=== PATIENT | female | born 1990 ===

== ENCOUNTER 2018-05-29 07:16 | Inpatient (IN) | payer MEDICAID, SELFPAY ==
[2018-05-29 07:41] VITALS: BMI 40.4
[2018-05-29] MEDS ORDERED: Lactated Ringer's 1,000 ML IV ONE ×2 (08:10)
[2018-05-29] MEDS ORDERED: Lactated Ringer's 1,000 ML IV SCH (08:15)
[2018-05-29] MEDS ORDERED: ceFAZolin 2 GM in Sodium Chloride 0.9% 100 ML IVPB ONE (08:30)
[2018-05-29] MEDS ORDERED: Oxytocin 30 UNIT 30 UNITS/500 ML BAG IV ONE ×2 (08:51→09:38)
[2018-05-29] MEDS ORDERED: OXYTOCIN/0.9 % NS 20 UNIT/1,000 ML BAG IV ONE (08:51)
[2018-05-29 09:15] LABS: BASO % 0.5 % (0.0-2.0); EOS # 0.1 K/uL (0.0-0.7); HEMOGLOBIN 11.1 g/dL (12.0-16.0); LYMPH % 31.1 % (20.0-40.0); MEAN CELL VOLUME 78.6 fl (81.0-99.0); MEAN CORPUSCULAR HGB CONC 33.1 g/dL (33.0-37.0); MEAN PLATELET VOLUME 10.1 fl (7.2-11.7); MONO # 0.5 K/uL (0.0-0.8); MONO % 7.6 % (0.0-10.0); NEUT # 3.9 K/uL (1.8-7.0); NEUT % 59.8 % (50.0-75.0); NRBC % 0.2 % (0.0-0.0); RBC 4.27 Mil/uL (3.80-5.20); RED CELL DISTRIBUTION WIDTH 23.4 % (11.5-14.5); WHITE BLOOD COUNT 6.5 K/uL (4.8-10.8)
[2018-05-29] MEDS ORDERED: OXYTOCIN/0.9 % NS 20 UNIT/1,000 ML BAG IV SCH ×2 (09:45→15:40)
--- NOTE | 2018-05-29 09:55 | OBADHP ---
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 Patient denies any acute complains since her last PMD visit. Denies any LOF/BV/CTX, + FM Denies dizziness, headache, palpitations, chest pain, SOB, urinary symptoms or weakness PMD: Dr. Bender PNC: [facility], no significant complications so far with this preganancy PMH: Anemia, Obesity PSH: Allg: Denies Meds: PNV, Iron FH: Denies and genetic and bleeding disorders in family SH: Denies alcohol, smoking or illicit drug use ROS: As HPI VS: Reviewed PE: unremarkable cardio, pulmonary and neuroexam Abdominal exam: Gravid uterus A/P: 27 y/o, , GA: 39.4 comes to the [facility] for repeat - Admit to L_D - Initiate protocol - follow up labs - serial examinations --- Cristin Morales, PGY-II Patient seen and examined by me. Agree with above resident note. --Dr. Bender Pelvic Type - PN: Adequate Extremities - PN: Normal Abdomen - PN: Normal Back - PN: Normal Breast - PN: Normal Lungs - PN: Normal Heart - PN: Normal Thyroid - PN: Normal Neurologic - PN: Normal HEENT - PN: Normal General - PN: Normal FHR - Baseline A Provider: 140 Vital Signs Provider: Reviewed IP Chief Complaint: Scheduled Section NICHD Variability Prov Fetus A: Moderate 6-25bpm NICHD Accel Fetus A IP Provider: [id number] FHR Category Provider Fetus A: Category I NICHD Decel Fetus A IP Provider: None Genitourinary Exam: Normal DTRs - PN: Normal EGA AdmitDate IP: 39.4 IP Adm Impression: Term, intrauterine IP Admit Plan: Admit to unit; Initiate Section protocol; Observation/Evaluation Datetime: 05/29/2018 08:22 Comments, ACOG Physical Exam: GA 38.4 Negative gc/cl, GBS neg negative HIV and RPR Rubella immune Hep B negative PPD+ with negative CXR
[2018-05-29] MEDS ORDERED: ePHEDrine 50 mg/ml Inj ONE (10:16)
[2018-05-29] MEDS ORDERED: Morphine 1 mg/ml preservative-free Inj(Duramorph) ONE (10:16)
[2018-05-29] MEDS ORDERED: Cellulose Hemostat 2X3 Sheet ONE (11:09)
[2018-05-29] MEDS ORDERED: Morphine 1 mg/ml preservative-free Inj(Duramorph) IT ONE ×2 (11:22→15:40)
[2018-05-29] MEDS ORDERED: Oxycodone/Acetaminophen 5/325 mg Tab PO PRN ×4 (11:46→15:40)
--- NOTE | 2018-05-29 11:58 | OBDS ---
DELIVERY PERSONNEL Delivery Doctor: Michela Bender MD Scrub Nurse: Alexandra Alves Java Developer Consultant: Brandy Bird RN (Annotations: Data stored by [facility] on behalf of user) Anesthesiologist: Liam Palomino MD Resident: Laura Morales MD MATERNAL INFORMATION Delivery Anesthesia: Spinal Medications in Delivery: pitocin Estimated Blood Loss (ml): 800 Placenta Cultured: Yes Maternal Complications: None RN Comments: Atraumatic Repeat at 10:53 of a viable babyboy with Lusty Cry. reciev ed by Dr. August assigned 9/9 's Infant and patient tolerated delivery well. Skin to skin initiat ed shortly after delivery. Provider Comments: Repeat cesearean section, no complications See Operative report LABOR SUMMARY EDC: 06/01/2018 00:00 No. Babies in Womb: 1 Attempted: No Labor Anesthesia: Spinal LABOR INFORMATION Reason for Induction: Not Applicable Oxytocin: N/A Group B Beta Strep: Negative Antibiotics # of Doses: 1 Antibiotics Time of Last Dose: 10:18 Steroids Given: None Reason Steroids Not Administered: Not Applicable Other Reason Not Administered: Not required MEMBRANES Membranes Rupture Method: Artificial Rupture of Membranes: 05/29/2018 10:52 Length of Rupture (hrs): 0.02 Amniotic Fluid Color: Clear Amniotic Fluid Amount: Moderate Amniotic Fluid Odor: Normal STAGES OF LABOR Stage 3 hrs: 0 Stage 3 min: 1 CSECTION DELIVERY Primary Indication: Repeat Elective CSection Urgency: Elective CSection Incidence: Repeat CSection Incision: Lower Uterine Transverse BABY A INFORMATION Infant Delivery Date/Time: 05/29/2018 10:53 Method of Delivery: Born in Route : No : N/A Forceps: N/A Vacuum Extraction: N/A Shoulder Dystocia : No SHOULDER DYSTOCIA BABY A Delivery Date/Time: 05/29/2018 10:53 PRESENTATION/POSITION BABY A Presentation: Cephalic Cephalic Presentation: Vertex Breech Presentation: N/A PLACENTA INFORMATION BABY A Placenta Delivery Time : 05/29/2018 10:54 Placenta Method of Delivery: Manual Removal Placenta Status: Delivered SCORES BABY A Heart Rate 1 min: >100 bpm Resp Effort 1 min: Good Cry Reflex Irritability 1 min: Cough or Sneeze or Pulls Away Muscle Tone 1 min: Active Motion Color 1 min: Body Paxton, Extremities Blue Resuscitation Effort 1 min: N/A SCORE 1 MIN: 9 Heart Rate 5 min: >100 bpm Resp Effort 5 min: Good Cry Reflex Irritability 5 min: Cough or Sneeze or Pulls Away Muscle Tone 5 min: Active Motion Color 5 min: Body Paxton, Extremities Blue Resuscitation Effort 5 min: N/A SCORE 5 MIN: 9 INFANT INFORMATION BABY A Gestational Age at Delivery: 39.0 Gestational Status: Term Outcome : Liveborn Condition : Stable Sex: Male IDENTIFICATION/MEDS BABY A ID Band Number: [id number] ID Band Location: Right Leg; Right Arm WEIGHT/LENGTH BABY A Birthweight (gms): 4730 Weight (lb): 10 Infant Weight (oz): 7 CORD INFORMATION BABY A No. Cord Vessels: 3 Nuchal Cord : N/A Cord Blood Taken: No Infant Suction: Mouth; Nose ASSESSMENT BABY A Complications: None Physical Findings at Delivery: Within Normal Limits Infant Respirations: Appears Normal Care By: Dr August Transferred To: Remains with Mother
[2018-05-29] MEDS: Lactated Ringer's 1,000 ML IV SCH (19:42)
[2018-05-30] MEDS: Lactated Ringer's 1,000 ML IV SCH (03:13)
[2018-05-30 06:28] LABS: HEMOGLOBIN 8.6 g/dL (12.0-16.0); MEAN CORPUSCULAR HEMOGLOBIN 26.7 pg (27.0-31.0); MEAN CORPUSCULAR HGB CONC 33.3 g/dL (33.0-37.0); RBC 3.22 Mil/uL (3.80-5.20); RED CELL DISTRIBUTION WIDTH 23.6 % (11.5-14.5); WHITE BLOOD COUNT 8.2 K/uL (4.8-10.8)
[2018-05-30] MEDS ORDERED: Multivitamin With Minerals Tab PO SCH (09:00)
[2018-05-30] MEDS: Multivitamin With Minerals Tab PO SCH (09:32)
--- NOTE | 2018-05-30 10:31 | OBPPN ---
Datetime: 05/30/2018 06:22 PP Pain Prov: Within normal limits PP Nausea Prov: Present PP Flatus Prov: No PP BM Prov: No PP Breasts Prov: Not Done PP Heart Prov: Normal PP Lungs Prov: Normal PP Abdomen/Uterus Prov: Normal PP Lochia Prov: Normal PP Vulva/Perineum Prov: Not Done PP CVA Tenderness Prov: Normal PP Extremities Prov: Normal PP C/S Incision Prov: Normal PP Progress Prov: Not Applicable PP Impression Prov: Normal progression; difficulties PP Plan Prov: Continue present management; consult PP Progress Note Prov: 27 y/o, now , S/P repeat C section at 39.4 wks on POD #1. Patient seen and examined at bedside in AM. No acute events ovenright. Patient reports lower abdom inal incision site pain which is controlled with pain medications. Had episode of nausea and vomiitng yesterday which is improving after taking reglan. No episode of vomitign today so far. Not passing f latus or BM yet. Improing diet tolerance. Denies any fever, chills, dysuria, CP, SOB. VSS, Tmax 99.6 General: No actue distress Chest: RRR, S1 S2 present, no murmurs Lungs: CTZ B/L, No rales, wheeze, rhonchi Abdomen: Dressign C/D/I, Mild incision site tenderness, No guarding or rigidity Ext: no pedal edema A/P: 27 y/o, now , S/P repeat C section at 39.4 wks on POD #1 with normal progressi on - monitor Vitals - Encourage breast feeding - Slowly increase ambulation - Diet advance as tolerated - Reglan for nausea/vomiting PRN - Ibuprofen for mild pain and percocet for moderate pain - Anticipated D/C 06/01/18 Ruben Morales, PGY1 Voyce# [id number] Patient seen and evaluated by me this am. Agree with above resident note. Patient with Hb 8.6 this am. Asymptomatic. Reports normal lochia. Will repeat H/H in the afternoon. Patient may ambulate with assistance. Continue pain meds as needed. --Dr. Bender Vital Signs Provider PP: Reviewed; Within Normal Limits
[2018-05-30 14:09] LABS: BASO % 0.3 % (0.0-2.0); EOS % 0.1 % (0.0-4.0); LYMPH # 1.3 K/uL (1.0-4.3); LYMPH % 15.2 % (20.0-40.0); MEAN CELL VOLUME 79.2 fl (81.0-99.0); MEAN CORPUSCULAR HEMOGLOBIN 26.5 pg (27.0-31.0); MEAN CORPUSCULAR HGB CONC 33.5 g/dL (33.0-37.0); MEAN PLATELET VOLUME 8.8 fl (7.2-11.7); MONO # 0.5 K/uL (0.0-0.8); MONO % 6.2 % (0.0-10.0); NEUT # 6.5 K/uL (1.8-7.0); NEUT % 78.2 % (50.0-75.0); NRBC % 0.1 % (0.0-0.0); RBC 3.39 Mil/uL (3.80-5.20); RED CELL DISTRIBUTION WIDTH 24.3 % (11.5-14.5); WHITE BLOOD COUNT 8.3 K/uL (4.8-10.8)
[2018-05-31] MEDS: Multivitamin With Minerals Tab PO SCH (08:46)
--- NOTE | 2018-05-31 14:44 | OBPPN ---
Datetime: 05/31/2018 05:57 PP Pain Prov: Within normal limits PP Nausea Prov: Denies PP Flatus Prov: Yes PP BM Prov: Yes PP Breasts Prov: Not Done PP Heart Prov: Normal PP Lungs Prov: Normal PP Abdomen/Uterus Prov: Normal PP Lochia Prov: Normal PP Vulva/Perineum Prov: Not Done PP CVA Tenderness Prov: Normal PP Extremities Prov: Normal PP C/S Incision Prov: Normal PP Progress Prov: Abnormal PP Impression Prov: Normal progression; difficulties PP Plan Prov: Continue present management; consult PP Progress Note Prov: 27 y/o, , s/p repeat C section at 39.4 wks on POD #2. Patient seen and examined at bedside in AM. Pt reports resolution of nausea and vomtting as well a s improvement in abdominal pain. Tolerating diet well PO. Reports passing flatus and had BM. Ambulati ng in room w/o difficulties. Voiding urine well. Denies any fever, chills, dysuria, CP, SOB. Dressing and Desai D/C yesterday. VSS, afebrile General: No actue distress,well Chest: RRR, S1 S2 present Lungs: CTZ B/L, No rales, wheeze, rhonchi Abdomen: Incision site intact. Mild incision site tenderness, No guarding or rigidity Ext: no pedal edema, or calf tenderness A/P: 27 y/o, now , S/P repeat C section at 39.4 wks on POD #2 with normal progressi on - Encourage breast feeding - Continue w/ambulation - Regular diet as tolerated. - Ibuprofen for mild pain and percocet for moderate pain - Anticipated D/C tomorrow 06/01/18 Ruben Morales, PGY1 Mesha# [id number] Attending addendum: I saw and examined the patient at bedside myself this morning. I reviewed the resident note above and agree with findings and management. Anticipate DC home tomorrow. Danni Jerez MD Vital Signs Provider PP: Reviewed; Within Normal Limits Datetime: 05/30/2018 16:49 IP PP Procedures: None
--- NOTE | 2018-05-31 20:58 | OP ---
PROCEDURE DATE: 05/29/2018 PREOPERATIVE DIAGNOSIS: Term with previous section, declined vaginal after section. POSTOPERATIVE DIAGNOSIS: Term with previous section, declined vaginal after section, delivered. PROCEDURE: Repeat low-transverse section. SURGEON: Orlando Blankenship MD. TECHNICAL ADMINISTRATIVE ASSISTANT: Dr. Indira Gomez, OB fellow. ESTIMATED BLOOD LOSS: 800 mL. URINE OUTPUT: 350 mL, clear at the end of procedure. INTRAVENOUS FLUIDS: 1200 mL of lactated Ringer's. COMPLICATIONS: None. CLOSURE: Subcuticular. PATHOLOGY: Placenta. FINDINGS: A live male with Apgars of 9 and 9, weight 10 pounds 6.8 ounces, delivered in vertex presentation, amniotic fluid clear, nuchal x1 easily reduced, grossly normal tubes, ovaries and uterus. DESCRIPTION OF PROCEDURE: The patient was taken to the operating room and given spinal anesthesia without difficulty. She was prepped and draped in the normal sterile fashion in the dorsal supine position with a leftward tilt. A Pfannenstiel skin incision was then made with a scalpel and carried through the underlying fascia with the Bovie. The fascia was incised in the midline and the incision was extended laterally using the Bovie. The inferior aspect of the fascial incision was then grasped with Jorge A clamps, elevated, and the underlying rectus muscles were dissected off sharply with the Bovie, then bluntly. Attention was then turned to the superior aspect of the fascial incision, which in a similar fashion was dissected off with the Bovie and then bluntly. The rectus muscles were then meticulously in the midline using the scalpel. The peritoneum was identified, tented up, and entered with Metzenbaum scissors, and this incision was extended laterally, superiorly and inferiorly paying close attention to the bladder. The bladder blade was inserted. The vesicouterine peritoneum was identified, tented up, and entered with Metzenbaum scissors. This incision was extended laterally and a bladder flap was created digitally. The bladder blade was reinserted and the lower uterine segment was incised in a transverse fashion with the scalpel. This incision was extended cephalocaudally bluntly and the was then delivered atraumatically after reduction of a loose nuchal cord x1. Clear amniotic fluid was noted. The nose and mouth were suctioned in the abdomen. The cord was doubly clamped and cut. The was handed off to the waiting director of category management. Cord blood was then taken. The placenta was extracted manually and intact. The uterus was exteriorized and cleared of all clots and debris. The uterine incision was then closed with 1 Vicryl in a running locked fashion and two further evmioc-cb-hlage sutures were then placed for hemostasis. The Bovie was used also to provide good hemostasis at the site of the incision repair and Surgicel was placed over the incision. Copious irrigation was performed. The uterus was returned to the abdomen. The gutters were cleared of all clots. Inspection of the uterine incision again revealed good hemostasis. The peritoneum and muscle layer was then closed with 2-0 Vicryl in a running fashion. The fascia was reapproximated with 0 Vicryl in a running fashion bilaterally to the midline. The Bovie was used to ensure good hemostasis in the subcutaneous fat, and this layer was also closed with four interrupted stitches using a 3-0 plain suture. The skin was closed with 3-0 Monocryl on the Des needle for subcuticular stitch and this incision was covered with Steri-Strips and sterile dressing. The patient tolerated the procedure well. Sponge, lap, and needle counts were correct x4. Ancef 2 gm was given preoperatively. The patient was taken to the recovery room in stable condition. There was no injury to the bladder, bowel, ureter or baby. Orlando Blankenship MD
[2018-06-01] MEDS: Multivitamin With Minerals Tab PO SCH (10:03)
--- NOTE | 2018-06-01 12:39 | OBDCSUM ---
Datetime: 06/01/2018 06:21 Discharged to, Provider: Home Follow up at, Provider: Dr. Andrews Disch Instr Activity: Normal activity; May be up to bathroom; May be up for meals; May Shower Disch Instr Diet: Regular Discharge Instructions, Provider: Routine instructions given Discharge Diagnosis, Provider: Term Delivered Follow up in weeks, Provider: 2 wks, 4-6 wks Disch Referrals: None Contraception discussed, Prov: Yes Disch Activity Restrictions: No sexual activity; Nothing in vagina - Hewitt, tampons, douche Discharge Comment, Provider: EGA: 39.4 wks Diagnosis: Repeat 27 y/o , s/p on 05/29/18 @ 10:53. Pt delivered baby boy, Wt: 4730gm, 9/9 Summary: Patient is POD3 with normal progression. No complications during post- period. Loch ia less than menses. Pt was able to pass gas and had BM, tolerating regular diet, Fundus firm below u mbilicus, able to ambulate w/o any difficulties, voiding well, denies fever, chills, FRAUSTO, SOB, N/V, ca lf pain. CBC post-: 9.0/26.9 Discharge Instructions: Continue with PNV 1 tab PO daily Ibuprofen 600mg 1 tab PO Q6h prn for mild-mod pain Percocet5/325 mg tab Q4hr PRN for moderate-severe pain FeoSol take 1 tab BID for anemia Pt planning to use implant (Nexplanon) for contraception. Instructions given to patient: If excessive bleeding, return of pain or increasing pain and/or fev er without relief from medication, go to ED PT was urged if feeling sad, mood swing, depression, neglect of baby, suicidal thoughts, homicidal thought should go to ED or call 911 for help Pt should go to her Primary care doctor if she has difficulty with F/U in 2 weeks for wound check and post- visit in 4 to 6 weeks with [facility] Case discussed with attending Ruben Morales, PGY1 Attending addendum: I saw and examined the patient myself at bedside this morning. I reviewed the resident note above and agree with findings and management. Patient to have wound check and newoborn exam on Monday 06/[address] Morales. Danni Jerez MD Contraception after Delivery: Control Pill/Patch
--- NOTE | 2018-06-01 12:40 | OBPPN ---
Datetime: 06/01/2018 06:28 PP Pain Prov: Within normal limits PP Nausea Prov: Denies PP Flatus Prov: Yes PP BM Prov: Yes PP Breasts Prov: Normal PP Heart Prov: Normal PP Lungs Prov: Normal PP Abdomen/Uterus Prov: Normal PP Lochia Prov: Normal PP Vulva/Perineum Prov: Normal PP CVA Tenderness Prov: Normal PP Extremities Prov: Normal PP C/S Incision Prov: Normal PP Progress Prov: Normal PP Impression Prov: Normal progression PP Plan Prov: Continue present management PP Progress Note Prov: 27 y/o, , s/p repeat C section at 39.4 wks on POD #3. Patient seen and examined at bedside in AM. Abdominal pain well controlled with pain medications. Tolerating diet well PO. Reports passing flatus and had BM. Ambulating in room w/o difficulties. Void ing urine well. Denies any fever, chills, dysuria, CP, SOB. VSS, afebrile General: No actue distress,well Chest: RRR, S1 S2 present Lungs: CTZ B/L, No rales, wheeze, rhonchi Abdomen: Incision site intact. Mild incision site tenderness, No guarding or rigidity Ext: no pedal edema, or calf tenderness Neuro: AAO x 3 A/P: 27 y/o, now , S/P repeat C section at 39.4 wks on POD #3 with normal progressi on - Encourage breast feeding - Continue w/ ambulation - Regular diet as tolerated. - Ibuprofen for mild pain and percocet for moderate pain - FeSo4 for upon discharge for anemia - Anticipated D/C today 06/01/18 Case discussed with attending Ruben Morales, PGY1 Voyce# [id number] Attending addendum: I saw and examined the patient myself at bedside this morning. I reviewed the resident note above and agree with findings and management. Patient to have wound check and newoborn exam on Monday 06/[address] Morales. Danni Jerez MD Vital Signs Provider PP: Reviewed; Within Normal Limits
[2018-06-01 19:10] VITALS: BP 116/76; PULSE 65; RESP 20; TEMP 97.8; O2SAT 98
[2018-06-02] MEDS ORDERED: Multivitamin With Minerals Tab PO SCH (09:00)
== END 2018-06-01 13:10 | disposition home or self-care (01) | DRG 370 ==
LOC: H.EROB2 07:16 → H.L&D 08:10 → H.OB/GYN 16:01
PROVIDERS: ADMIT Obstetrics & Gynecology; ATTEND Obstetrics & Gynecology
PROC: 10D00Z1 Extraction of Products of Conception, Low, Open Approach (ICD-10-PCS; principal; 2018-05-29)
PROC: 4A1HXCZ Monitoring of Products of Conception, Cardiac Rate, External Approach (ICD-10-PCS; 2018-05-29)
DX: O34.211 Maternal care for low transverse scar from previous cesarean delivery (principal); O90.81 Anemia of the puerperium; O36.63X0 Maternal care for excessive fetal growth, third trimester, not applicable or unspecified; O69.81X0 Labor and delivery complicated by cord around neck, without compression, not applicable or unspecified; Z3A.39 39 weeks gestation of pregnancy; Z37.0 Single live birth

== ENCOUNTER 2018-07-10 21:26 | Emergency (ER) | payer SELFPAY ==
[2018-07-10 21:26] VITALS: BMI 40.4
--- NOTE | 2018-07-11 00:04 | ED PDOC ---
Addendum entered and electronically signed by Harmony Mckeon PA 07/11/18 04:26: Addendum Addendum: 07/11/18 04:26 + healing site noted upon abdominal exam; no drainage, surrounding erythema or warmth noted Original Note: HPI: Abdomen Time Seen by Provider: 07/10/18 23:09 Chief Complaint (Nursing): Abnormal Skin Integrity Chief Complaint (Provider): abdominal pain History Per: Patient History/Exam Limitations: no limitations Onset/Duration Of Symptoms: Days (2) Current Symptoms Are (Timing): Still Present Location Of Pain/Discomfort: RLQ, LLQ, Suprapubic Quality Of Discomfort: "Pain" Additional Complaint(s): 27 y/o female presents for evaluation of lower abdominal pain x 2 days. Patient states she had a 6 weeks ago and pain is near site, unknown if related. Denies fever, nausea/vomiting, cough, congestion, changes in bowel movements, urinary symptoms, vaginal bleeding/discharge. No medication taken for relief thus far. Past Medical History Reviewed: Historical Data, Nursing Documentation, Vital Signs Vital Signs: Last Vital Signs Temp 97.7 F 07/10/18 22:26 Pulse 76 07/10/18 22:26 Resp 16 07/10/18 22:26 BP 119/77 07/10/18 22:26 Pulse Ox 98 07/10/18 22:26 - Medical History PMH: No Chronic Diseases Denies: Depression, Diabetes, HTN - Surgical History Surgical History: - Family History Family History: States: No Known Family Hx - Living Arrangements Living Arrangements: With Family - Home Medications Home Medications: Ambulatory Orders Medication Instructions Recorded Multivit/Folic Acid/I 1 tab PO DAILY MDD 1 05/29/18 [] Ferrous Sulfate [Feosol] 325 mg PO BID #60 tab 06/01/18 Ibuprofen [Motrin Tab] 600 mg PO Q6H PRN #20 tab 06/01/18 Sennosides A and B [Senokot Tab] 17.2 mg PO HS #30 tab 06/01/18 oxyCODONE/Acetaminophen [Percocet 1 tab PO Q4 PRN #20 tab 06/01/18 5/325 mg Tab] Polyethylene Glycol 3350 [Miralax] 17 gm PO DAILY PRN #7 powd.pack 07/11/18 - Allergies Allergies/Adverse Reactions: Allergies Allergy/AdvReac Type Severity Reaction Status Date / Time No Known Allergies Allergy Verified 10/21/15 17:40 Review of Systems ROS Statement: Except As Marked, All Systems Reviewed And Found Negative Gastrointestinal: Positive for: Abdominal Pain Physical Exam - Reviewed Nursing Documentation Reviewed: Yes Vital Signs Reviewed: Yes - Physical Exam Appears: Positive for: Well, Non-toxic, No Acute Distress Head Exam: Positive for: ATRAUMATIC, NORMAL INSPECTION, NORMOCEPHALIC Skin: Positive for: Normal Color Eye Exam: Positive for: Normal appearance ENT: Positive for: Normal ENT Inspection Cardiovascular/Chest: Positive for: Regular Rate, Rhythm Respiratory: Positive for: Normal Breath Sounds Gastrointestinal/Abdominal: Positive for: Tenderness (moderate suprapubic tenderness. mild llq, rlq tenderness) Back: Positive for: Normal Inspection Extremity: Positive for: Normal ROM Neurologic/Psych: Positive for: Alert, Oriented (x3) - Laboratory Results Result Diagrams: 07/11/18 00:23 07/11/18 00:23 - ECG O2 Sat by Pulse Oximetry: 98 - Progress ED Course And Treament: labs, urine, CT abd/pelvis CT SCAN OF THE ABDOMEN AND PELVIS WITH CONTRAST. CLINICAL HISTORY: Abdominal pain. TECHNIQUE: Multiple axial and coronal CT images were obtained through the abdomen and pelvis after administration of intravenous and oral contrast material. COMMENTS: The liver is mildly enlarged with decreased attenuation without mass or defect. There is no intra or extrahepatic biliary ductal dilatation. The spleen is normal. The gallbladder is within normal limits. The pancreas is of normal contour and attenuation characteristics. There is no evidence of adrenal mass. Both kidneys demonstrate prompt and equal nephrograms. The kidneys are normal in size, shape and configuration. There is no evidence of renal or ureteral mass. No renal or ureteral calculi are identified. There is no hydroureter or hydronephrosis. Moderate amount of fecal residue in the large bowels. Uncomplicated colonic diverticulosis. No evidence for appendicitis. There is no bowel wall thickening. No evidence for small or large bowel obstruction. There is no evidence of abdominal ascites or lymphadenopathy. Surgical changes of the lower aspect of the anterior abdominal wall without associated fluid collection. Mild surrounding inflammatory fat stranding. There is no evidence of intrinsic or extrinsic bladder mass. There is no pelvic ascites or lymphadenopathy. Thickening of the bladder. Images of the lung bases show no evidence of pleural or parenchymal mass. There are no pleural effusions. The bony structures are free of lytic or blastic lesions. IMPRESSION: Surgical changes of the lower aspect of the anterior abdominal wall. No associated fluid collection or abscess formation. Mild cystitis. Constipation. Thank you for your kind referral of this patient. On re-eval, patient states pain resolved Patient educated on findings, discharged with rx Miralax Advised fluids, high fiber diet FOllow up PMD within 2-3 days Return precautions given Disposition - Clinical Impression Clinical Impression: Abdominal pain, Constipation - Patient ED Disposition Is Patient to be Admitted: No Counseled Patient/Family Regarding: Studies Performed, Diagnosis, Need For Followup, Rx Given - Disposition Referrals: [facility] [Outside] Disposition: Routine/Home Disposition Time: 04:24 Condition: IMPROVED Prescriptions: Polyethylene Glycol 3350 [Miralax] 17 gm PO DAILY PRN #7 powd.pack PRN Reason: Constipation Instructions: Acute Abdomen (Belly Pain), Constipation in Adults Print Language: BRUNEIAN
[2018-07-11 00:27] LABS: BASO % 0.6 % (0.0-2.0); EOS # 0.2 K/uL (0.0-0.7); EOS % 2.3 % (0.0-4.0); HEMOGLOBIN 11.2 g/dL (12.0-16.0); LYMPH # 2.4 K/uL (1.0-4.3); LYMPH % 34.1 % (20.0-40.0); MEAN CELL VOLUME 81.4 fl (81.0-99.0); MEAN CORPUSCULAR HEMOGLOBIN 26.4 pg (27.0-31.0); MEAN CORPUSCULAR HGB CONC 32.4 g/dL (33.0-37.0); MONO # 0.6 K/uL (0.0-0.8); NEUT # 3.9 K/uL (1.8-7.0); NRBC % 0.2 % (0.0-0.0); RBC 4.24 Mil/uL (3.80-5.20); RED CELL DISTRIBUTION WIDTH 19.7 % (11.5-14.5); WHITE BLOOD COUNT 7.1 K/uL (4.8-10.8)
[2018-07-11 00:38] LABS: ALB/GLOB RATIO 1.1 (1.0-2.1); ALBUMIN 4.2 g/dL (3.5-5.0); ALT/SGPT 50 U/L (9-52); AST/SGOT 31 U/L (14-36); BLOOD UREA NITROGEN 18 mg/dl (7-17); CALCIUM 9.5 mg/dL (8.4-10.2); GFR NON-AFRICAN AMERICAN > 60
[2018-07-11 00:39] LABS: SQUAMOUS EPITHIAL 3 /hpf (0-5); URINE BACTERIA RARE (<OCC); URINE BILIRUBIN NEGATIVE (NEGATIVE); URINE BLOOD NEGATIVE (NEGATIVE); URINE CLARITY SLIGHTY-CLOUDY (Clear); URINE COLOR YELLOW (YELLOW); URINE GLUCOSE (UA) NEG (Normal); URINE LEUKOCYTE ESTERASE TRACE Leu/uL (Negative); URINE PROTEIN 30 mg/dL (NEGATIVE); URINE UROBILINOGEN 0.2-1.0 mg/dL (0.2-1.0)
[2018-07-11] MEDS ORDERED: Iohexol 240 (50 ml) PO ONE (00:49)
[2018-07-11] MEDS ORDERED: Iohexol 240 (50 ml) ONE (00:54)
[2018-07-11] MEDS ORDERED: Iohexol 300 100 ML IJ ONE (02:41)
[2018-07-11] MEDS ORDERED: Sodium Chloride 0.9% 50 ML IV ONE (02:41)
[2018-07-11 04:36] VITALS: BP 104/57; PULSE 60; RESP 17; TEMP 98.2; O2SAT 99
--- NOTE | 2018-07-11 10:02 | CT ---
Date of service: 07/11/2018 PROCEDURE: CT Abdomen and Pelvis with contrast HISTORY: lower abd pain COMPARISON: None. TECHNIQUE: Contrast dose: 90 mL Omnipaque 300 Radiation dose: Total exam DLP = 675.46 mGy-cm. This CT exam was performed using one or more of the following dose reduction techniques: Automated exposure control, adjustment of the mA and/or kV according to patient size, and/or use of iterative reconstruction technique. FINDINGS: LOWER THORAX: Unremarkable. LIVER: Hepatic steatosis. Hepatomegaly. No gross lesion or ductal dilatation. GALLBLADDER AND BILE DUCTS: Unremarkable. PANCREAS: Unremarkable. No gross lesion or ductal dilatation. SPLEEN: Unremarkable. ADRENALS: Unremarkable. No mass. KIDNEYS AND URETERS: Unremarkable. No hydronephrosis. No solid mass. VASCULATURE: Unremarkable. No aortic aneurysm. No aortic atherosclerotic calcification or mural plaque present. BOWEL: Moderate stool retention. No obstruction. No gross mural thickening. APPENDIX: Normal appendix. PERITONEUM: Unremarkable. No free fluid. No free air. LYMPH NODES: Unremarkable. No enlarged lymph nodes. BLADDER: Unremarkable. REPRODUCTIVE: Bilateral adnexal coalescent hypodensities probably bilateral ovarian follicular physiologic cystic changes in this 27-year-old female patient. BONES: No acute fracture. OTHER FINDINGS: None. IMPRESSION: Moderate stool retention. Probable physiologic ovarian changes as above. Hepatomegaly with diffuse fatty infiltration. Concordant results (preliminary interpretation) provided by [place].
== END 2018-07-11 04:38 | disposition home or self-care (01) ==
LOC: H.ER 21:26
DX: K59.00 Constipation, unspecified (principal); N30.90 Cystitis, unspecified without hematuria
CPT/HCPCS: 74177; 80053; 81003; 81025; 83605; 85025; 87086; 87181; 99283; J1885; Q9966; Q9967